=== PATIENT | female | born 1990 | race African-American/Black ===

== ENCOUNTER 2018-05-07 15:27 | Emergency (ER) | payer OTHER ==
[~2018-05-07] VITALS: Ht 162.6 cm; Wt 59.0 kg
[~2018-05-07 15:27] MED LIST: BENADRYL25 MG; CLEOCIN HCL150 MG PO; IBUPROFEN 400400 M1 PO; NAPROSYN500 MG PO; NORCO 5-325 TA1 EACH PO; ZPAK PO
== END 2018-05-07 15:46 | disposition short-term general hospital (02) ==
LOC: ER 15:27
DX: O60.03 Preterm labor without delivery, third trimester (principal); Z3A.36 36 weeks gestation of pregnancy